=== PATIENT | female | born 1960 | race Two or more races ===

== ENCOUNTER 2019-01-31 15:22 | Emergency (ER) | payer MEDICAID ==
[~2019-01-31] VITALS: Ht 165.1 cm; Wt 72.6 kg
--- NOTE | 2019-01-31 15:30 | NUR ---
ED Nurse Note: Patient arrived to ED complaining of palpitations after smoking marijuana. Patient stated she bought it from a man on the street and is unsure if it was marijuana. Currently, patient AxO x 4, no acute distress. Patient resting in bed.
--- NOTE | 2019-01-31 15:46 | Emergency Room Report ---
History of Present Illness General Chief Complaint: Palpitations Source: Patient Present Illness HPI Patient presents with complaints of palpitation sensation after smoking a small joint she reports that she brought this from someone on the street who she did not know Right after smoking the joint she felt a palpitation sensation At this time however she reports that she feels back to baseline levels denies any headache denies any chest pain Denies any shortness of breath denies any vomiting or diarrhea denies any abdominal pain denies any neck pain or photophobia Allergies: Coded Allergies: No Known Allergies (Unverified , 01/31/19) Patient History Past Medical History: see triage record Now: No Reviewed Nursing Documentation: PMH: Agreed; PSxH: Agreed Nursing Documentation-PMH Past Medical History: No Stated History Review of Systems All Other Systems: negative except mentioned in HPI Physical Exam Vital Signs Date Time Temp Pulse Resp B/P (MAP) Pulse Ox O2 Delivery O2 Flow Rate FiO2 01/31/19 15:20 97.9 106 16 150/100 (117) 98 Room Air Sp02 EP Interpretation: reviewed, normal General Appearance: well appearing, no apparent distress Head: normocephalic, atraumatic Eyes: bilateral eye PERRL, bilateral eye EOMI ENT: hearing grossly normal, normal pharynx, TMs + canals normal, uvula midline Neck: full range of motion, supple, no meningismus, no bony tend Respiratory: lungs clear, normal breath sounds, no rhonchi, no respiratory distress, no retraction, no accessory muscle use Cardiovascular #1: normal peripheral pulses, regular rate, rhythm, no edema, no gallop, no JVD, no murmur Gastrointestinal: normal bowel sounds, non tender, soft, no mass, no organomegaly, non-distended, no guarding, no hernia, no pulsatile mass, no rebound Genitourinary: no CVA tenderness Musculoskeletal: normal inspection Neurologic: motor strength/tone normal, 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, oriented x3 , sensory intact, responsive Psychiatric: mood/affect normal Skin: no rash Lymphatic: normal inspection, no adenopathy Medical Decision Making Diagnostic Impression: Primary Impression: Palpitations ER Course Patient is a fairly complex patient with multiple differential to consideration including but not limited to cardiac cardiopulmonary and vascular emergencies Given the patient's report of taking an inhalation of what she thought was a marijuana joint And the sensation that she did have possible interaction with other drugs as possible Patient otherwise is fully symptomatic at this time Lung sounds are clear denies any chest pain or shortness of breath And after further observation is cleared for close outpatient follow-up EKG Diagnostic Results Rate: normal Rhythm: NSR ST Segments: other - Nonspecific ST changes Rhythm Strip Diag. Results EP Interpretation: yes Rate: 66 Rhythm: NSR, no PVC's, no ectopy Last Vital Signs Date Time Temp Pulse Resp B/P (MAP) Pulse Ox O2 Delivery O2 Flow Rate FiO2 01/31/19 15:20 97.9 106 16 150/100 (117) 98 Room Air Status: improved Disposition: HOME, SELF-CARE Condition: Improved Additional Instructions: Patient is provided with the discharge instructions notified to follow up with primary doctor in the next 2-3 days otherwise return to the er with any worsening symptoms. Please note that this report is being documented using [employer] technology. This can lead to erroneous entry secondary to incorrect interpretation by the dictating instrument. Dimas Jones DO Jan 31, 2019 15:46
[2019-01-31 17:10] VITALS: BP 143/89
--- NOTE | 2019-01-31 17:10 | NUR ---
ED Nurse Note: Pt cleared by health care Provider for discharge. Patient has steady gait, no s/s of acute distress. Patient verbalized understanding of DC instructions.
--- NOTE | 2019-02-01 13:05 | Cardiology Report ---
APPROVED REPORT EKG Measurement Heart [id number] Normal sinus rhythm Possible Left atrial enlargement Nonspecific T wave abnormality Abnormal ECG
== END 2019-01-31 17:10 | disposition home or self-care (01) ==
LOC: EDBD 15:22 → EMR 15:40
DX: R00.2 Palpitations (principal)
CPT/HCPCS: 93005; Z7502; 99283